=== PATIENT | male | born 1995 | race Two or more races ===

== ENCOUNTER 2020-10-21 12:32 | Emergency (ER) | payer SELFPAY ==
[~2020-10-21] VITALS: Ht 172.7 cm; Wt 79.4 kg
[2020-10-21 14:08] VITALS: BP 130/61
== END 2020-10-21 14:12 | disposition home or self-care (01) ==
LOC: ER 12:35
DX: L02.415 Cutaneous abscess of right lower limb (principal)

== ENCOUNTER 2020-10-22 22:15 | Emergency (ER) | payer SELFPAY ==
[~2020-10-22] VITALS: Ht 175.3 cm; Wt 79.4 kg
[2020-10-22 22:27] VITALS: BP 129/83
== END 2020-10-23 00:15 | disposition left against medical advice (07) ==
LOC: ER 22:15
DX: M79.651 Pain in right thigh (principal); Z53.21 Procedure and treatment not carried out due to patient leaving prior to being seen by health care provider

== ENCOUNTER 2024-05-08 02:39 | Emergency (ER) | payer MEDICAID ==
[~2024-05-08] VITALS: Ht 172.7 cm; Wt 75.4 kg
--- NOTE | 2024-05-08 04:54 | DVH ---
CLINICAL INDICATION: right jaw pain TECHNIQUE: 3 XY FACIAL BONES LIMITED Comparison: None FINDINGS/IMPRESSION: : There is no evidence of acute fracture or dislocation. Soft tissues are unremarkable.
--- NOTE | 2024-05-08 05:29 | ED.PDOC ---
Eye-HPI HPI Comments 28-YEAR-OLD MALE PRESENTS TO ER WITH COMPLAINTS OF RIGHT-SIDED JAW PAIN X2 HOURS. PATIENT REPORTS HE STARTED EXPERIENCING RIGHT-SIDED JAW PAIN 2 HOURS PRIOR TO ARRIVAL S/P GETTING KICKED IN HIS JAW WHILE KICKBOXING WITH HIS FRIEND. DENIES HEAD INJURY/LOC. HE RATES HIS CURRENT PAIN A 9/10 TO RIGHT SIDE OF JAW WITHOUT RADIATION. DENIES USE OF MEDICATIONS FOR CURRENT SYMPTOMS. PATIENT PRESENTS TO ER AMBULATORY ON ARRIVAL, ALERT AND ORIENTED X4, WITH STEADY GAIT, IN NO DISTRESS. DENIES HEADACHE, SKIN CHANGES, NECK PAIN, NAUSEA/VOMITING, NUMBNESS/TINGLING, DENTAL PAIN OR ANY FURTHER SYMPTOMS/COMPLAINTS Chief Complaint: Jaw Pain Time Seen by MD: 03:19 Primary Care Provider: NONE Reviewed Notes: Nurses Notes, Medications, Allergies Allergies: Coded Allergies: NO KNOWN ALLERGIES (Unverified , 04/28/16) Home Meds Active Scripts Ibuprofen (Ibuprofen) 800 Mg Tab, 1 TAB PO TID PRN, #30 TAB 0 Refills Prov:ORA STAPLETON 05/08/24 Information Source: Patient Mode of Arrival: EMS Past Medical History PAST MEDICAL HISTORY: Denies Surgical History: Denies all surgeries Family History Family History: Unknown Social History Smoker: Cigarettes, Less Than 1 Pack/Day Drugs: Marijuana Lives In: Home Constitutional: denies: chills, diaphoresis, fatigue, fever, malaise, sweats, weakness, others EENTM: reports: others (As stated in HPI) Respiratory: denies: cough, hemoptysis, orthopnea, SOB at rest, shortness of breath, SOB with excertion, stridor, wheezing, others Cardiovascular: denies: chest pain, dizzy spells, diaphoresis, Dyspnea on exertion, edema, irregular heart beat, left arm pain, lightheadedness, palpitations, PND, syncope, others Gastrointestinal: denies: abdomen distended, abdominal pain, blood streaked bowels, constipated, diarrhea, dysphagia, difficulty swallowing, hematemesis, melena, nausea, poor appetite, poor fluid intake, rectal bleeding, rectal pain, vomiting, others Genitourinary: denies: burning, dysuria, flank pain, frequency, hematuria, incontinence, penile discharge, penile sore, pain, testicle pain, testicle swelling, urgency, others Neurological: denies: dizziness, fainting, headache, left sided numbness, left sided weakness, numbness, paresthesia, pre-existing deficit, right sided numbness, right sided weakness, seizure, speech problems, tingling, tremors, weakness, others Musculoskeletal: denies: back pain, gout, joint pain, joint swelling, muscle pain, muscle stiffness, neck pain, others Integumetry: denies: bruises, change in color, change in hair/nails, dryness, laceration, lesions, lumps, rash, wounds, others Allergic/Immunocompromised: denies: Difficulty Healing, Frequent Infections, Hives, Itching, others Hematologic/Lymphatic: denies: anemia, blood clots, easy bleeding, easy bruising, swollen glands, others Endocrine: denies: excessive hunger, excessive sweating, excessive thirst, excessive urination, flushing, intolerance to cold, intolerance to heat, unexplained weight gain, unexplained weight loss, others Psychiatric: denies: anxiety, bipolar disorder, depression, hopeless, panic disorder, schizophrenia, sleepless, suicidal, others Physical Exam General Appearance: No Apparent Distress HEENT: PERRL/EOMI, Pharynx Normal, TMs Normal, Other (TTP to region of right TMJ noted. No swelling/skin changes appreciated. Patient able to open close mouth without difficulty. No broken teeth/gums changes noted.) Neck: Full Range of Motion, Non-Tender, Normal Respiratory: Chest Non-Tender, Lungs Clear, No Accessory Muscle Use, No Respiratory Distress, Normal Breath Sounds Cardiovascular: No Murmur, No Gallop, Regular Rate/Rhythm Breast Exam: Deferred Gastrointestinal: NOT DONE Genitalia: Deferred Pelvic: Deferred Rectal: Deferred Extremities: Normal capillary refill, Normal range of motion Neurologic: Alert, talent development coordinator II-XII nml as Tested, No Motor Deficits, Normal Affect, Normal Mood, No Sensory Deficits Cerebellar Function: Normal Reflexes: Normal Skin: Dry, Normal Color, Warm Peripheral Pulses: 2+ carotid (R), 2+ carotid (L), 2+ Radial (R), 2+ Radial ( L), 2+ Brachial (R), 2+ Brachial (L) Lymphatic: No Adenopathy Was a procedure done? Was a procedure done?: No Sedation Sedation?: No EENT DIFF Eye: N/A Other Differential Diagnosis Fracture, laceration, neurovascular injury X-Ray, Labs, Meds, VS Vital Signs Date Time Temp Pulse Resp B/P (MAP) Pulse Ox O2 Delivery O2 Flow Rate FiO2 05/08/24 05:21 98 Room Air 0 05/08/24 02:46 98.0 102 18 136/90 (105) 98 PATIENT: JAMES NOGUERA CACCT: [id number]: [id number] : 1995 LOC: ER ROOM / BED: / AGE / SEX: 28 / M ADM STATUS: REG ER SERVICE ORDERING PHYSICIAN: ORA STAPLETON PROCEDURE(s): FACE2 - FACIAL BONES LIMITED REASON: right jaw pain ORDER NUMBER(s): [id number], ACCESSION NUMBER(s): [id number] CLINICAL INDICATION: right jaw pain TECHNIQUE: 3 XY FACIAL BONES LIMITED Comparison: None FINDINGS/IMPRESSION: : There is no evidence of acute fracture or dislocation. Soft tissues are unremarkable. ATED BY: LASHAY MURRAY MD DICTATED DATE/TIME: 05/08/24451 SIGNED BY: LASHAY MURRAY MD SIGNED DATE/TIME: 05/08/24451 CC: Facial bones x-ray reviewed Ibuprofen 800 mg p.o. ordered Advised on rest/no strenuous activity and alternate ice on/off as needed for pain Advised to follow up with PCP in 1-2 days Patient verbalized understanding and agreeable with current plan of care Advised to return to ER immediately if symptoms worsen Images Reviewed?: Images reviewed and evaluated by me Time of 1ST Reevaluation: 05:02 Reevaluation 1ST: N/A Patient Education/Counseling: Diagnosis, Treatment, Prognosis, Need For Follow Up Family Education/Counseling: No Family Present Departure 1 Departure Time of Disposition: 05:22 Impression: Primary Impression: Facial contusion Qualified Codes: S00.83XA - Contusion of other part of head, initial encounter Disposition: HOME / SELF CARE / HOMELESS Condition: Stable e-Prescriptions Ibuprofen (Ibuprofen) 800 Mg Tab 1 TAB PO TID PRN, #30 TAB 0 Refills Prov: ORA STAPLETON 05/08/24 Discharged With: Self Critical Care Note Critical Care Time?: No Stability Stability form required: No Heart Score Heart Score: Heart Score Response (Comments) Value History N/A 0 EKG N/A 0 Age N/A 0 Risk Factors N/A 0 Troponin N/A 0 Total 0 ORA STALPETON May 08, 2024 05:29
[2024-05-08] MEDS ORDERED: IBUP-1456 PO (05:30)
[2024-05-08] MEDS: IBUPROFEN 800 MG TAB PO ONE (05:37)
[2024-05-08 05:40] VITALS: BP 138/89; PULSE 79; RESP 18; TEMP 98; O2SAT 98
== END 2024-05-08 05:40 | disposition home or self-care (01) ==
LOC: ER 02:39
DX: S00.83XA Contusion of other part of head, initial encounter (principal); F17.210 Nicotine dependence, cigarettes, uncomplicated; F15.90 Other stimulant use, unspecified, uncomplicated; Z79.899 Other long term (current) drug therapy; W50.1XXA Accidental kick by another person, initial encounter; Y93.89 Activity, other specified; Y92.89 Other specified places as the place of occurrence of the external cause; Y99.8 Other external cause status
CPT/HCPCS: 70140